=== PATIENT | female | born 1960 | race Caucasian/White ===

== ENCOUNTER → 2023-09-02 13:10 | Outpatient (REF) | payer OTHER, SELFPAY | LOC: RAD 13:10 | PROVIDERS: ATTENDING PHYSICIAN Surgery Vascular Surgery; FAMILY PHYSICIAN Family Medicine | DX: I73.9 Peripheral vascular disease, unspecified (principal) | CPT/HCPCS: 93922; 93925 ==

== ENCOUNTER 2023-12-13 08:07 | Inpatient (IN) | payer OTHER, SELFPAY ==
[2023-11-19 09:22] VITALS: BMI 26.7
[2023-11-19 09:54] LABS: % Basophils 0.4 % (0-2); % Eosinophils 1.8 % (0-6); % Immature Granulocytes 0.3 % (0-0.5); % Lymphocytes 29.1 % (20.5-51.1); % Monocytes 7.4 % (1.7-9.3); Absolute Eosinophils 0.1 10^3/uL (0-0.7); Absolute Monocytes 0.5 10^3/uL (0.1-0.6); Absolute Neutrophils 4.2 10^3/uL (1.4-6.5); Hematocrit 39.5 % (37.0-47.0); Hemoglobin 12.6 g/dL (12.0-16.0); Mean Corp Hgb Conc. 31.9 g/dL (33.0-37.0); Mean Corpuscular Hgb 28.9 pg (27.0-31.0); Mean Corpuscular Volume 90.6 fL (81.0-99.0); Mean Platelet Volume 8.8 fL (7.4-10.4); Nucleated Red Blood Cells % 0 %; Platelet Count 239 10^3/uL (130-400); Red Blood Cell Count 4.36 10^6/uL (4.20-5.40); Red Cell Dist. Width 13.9 % (11.5-14.5); White Blood Cell Count 6.9 10^3/uL (4.8-10.8)
[2023-11-19 09:57] LABS: INR 0.97; PT 12.7 Sec (11.4-14.6)
[2023-11-19 09:58] LABS: APTT 25.5 Sec (23.4-35.0)
[2023-11-19 10:21] LABS: Blood Urea Nitrogen 11 mg/dl (7-17); Calcium 9.4 mg/dl (8.4-10.2); Carbon Dioxide 26 mmol/L (22-30); Chloride 106 mmol/L (98-107); Estimated Creatinine Clearance 65 ml/min; Glucose 96 mg/dl (70-99); Potassium 4.2 mmol/L (3.5-5.1); Sodium 141 mmol/L (135-145); eGFR > 60.00
[2023-12-13] VITALS (20 sets, daily range): BP systolic 91–184; BP diastolic 50–79; BMI 26.1
[2023-12-13] MEDS: VANCOCIN 200 IV (08:43)
[2023-12-13] MEDS: BACTROBAN NASAL 1 GRAM NASAL (08:44)
[2023-12-13] MEDS: PERIDEX 0.12% ORAL RINSE 15 ML PO (08:44)
--- NOTE | 2023-12-13 09:15 | W.SUR.PREOP ---
Pre-Operative Surgical Note
-
I have examined this patient prior to the performance of the scheduled procedure.
The patient's condition is unchanged from the time of the current History and
Physical and the patient is able to undergo the scheduled procedure.
[2023-12-13 10:56] LABS: ACT-LR - POC 350 Seconds (116-155)
[2023-12-13 11:51] LABS: ACT-LR - POC 258 Seconds (116-155)
--- NOTE | 2023-12-13 12:22 | CON.INTV ---
Consultation
Consultation Request
Date/Time Consultation Requested: 12-13-23
Date/Time Consultation Performed: 12-13-23
Requesting Provider: Dr Chu
Performing Provider: Dr Harris
Reason for Consultation: s/p EVAR
Medical History
-
Chief Complaint: s/p EVAR
History of Present Illness:
Mrs Mckenna Carpenter is a 63/W adm 12-12 for planned vascular intervention for worsening SANDRA claudication, and postprandial abd pain with unintentional wt loss.
Received procedure by Dr Chu 12-12. Seen at ICU, c/o incisional pain
Past Medical History
Past Medical History: Other (see A&P for PMH/PSH)
Social History
Tobacco: Smoker
Alcohol: None
Drug: None
Personal:
Living: With Family
Family History
Family History: Cancer (M: breast. B: melanoma. B: colon)
Allergies / Home Medications
Allergies
Allergy/AdvReac Type Severity Reaction Status Date / Time
bee venom protein (honey bee) Allergy Anaphylaxis Verified 11/15/23 11:08
Penicillins Allergy Hives Verified 11/15/23 11:08
Home Medications
�Medication �Instructions �Recorded �Confirmed �Last Taken �Type
dexlansoprazole 60 mg 60 mg PO DAILY 06/23/23 11/15/23 Unknown History
capsule,biphase delayed release
(Dexilant)
mecobalamin (vitamin B12) 10,000 0 mcg IM QMONTH 06/23/23 11/15/23 Unknown History
mcg solution for injection
risankizumab-rzaa 360 mg/2.4 mL 360 mg SC DIRECTED 06/23/23 12/13/23 12/03/23 History
(150 mg/mL) subcut wearable
injector (Skyrizi)
acetaminophen 300 mg-codeine 30 mg 1 tab PO Q6H PRN pain 11/15/23 12/13/23 12/12/23 18:00 History
tablet
Review of Systems
-
History Source: Patient
Cardiac: Other (incisional pain)
Musculoskeletal: Other (back pain)
Vitals / Labs / Diagnostic Testing
Vital Signs
Temp Pulse Resp BP Pulse Ox
98.4 F 77 17 184/70 98
12/13/23 08:10 12/13/23 09:15 12/13/23 09:15 12/13/23 09:12 12/13/23 09:15
Diagnostic Testing:
Physical Exam
-
HEENT: Normocephalic and Moist Mucous Membranes
Cardiovascular: Regular Rhythm, Peripheral Edema (n) and JVD (n)
Respiratory: Clear and Non-Labored Respirations
GI: Soft, Non Distended and Non Tender
Neurology: Awake, AO x 3 and No Motor Deficits
Skin: Warm
General: Respiratory Distress (n)
Assessment
-
Assessment:
Mrs Mckenna Carpenter is a 63/W adm 12-12 for planned vascular intervention for worsening SANDRA claudication, and postprandial abd pain with unintentional wt loss.
Impression:
PAD, SANDRA claudication
S/p L Brachial Artery Cutdown, SMA stent Graft, Endovascular Repair of Distal Aorta and Bilateral Common Iliac Arteries, Intravascular Laser Lithotripsy, Angioplasty and Stent
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
Nephrolithiasis: urosepsis, L ureteral stone, obstructive uropathy, s/p cystoscopy with L ureteral stone dislodgment and left ureteral stent insertion 06-09-23
S/p cystoscopy, L ureteroscopy, laser lithotripsy of ureteral stone, L ureteral stent removal 06-30-23
HTN
PAD, bilateral SANDRA claudication
Endometriosis
UTIs
Goiter
Cataracts
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
Hemorrhoids
Crohn's disease
Hysterectomy
Smoker
Plan:
Postoperative surgical intensive care unit monitoring
Supplemental oxygen as needed
Incentive spirometry
Aspiration precautions
Neuro and vascular checks per protocol
Vascular surgery following-correspondence and operative notes reviewed
Postop pain mgmt
DVT prophylaxis
Early nutrition
Early mobilization
D/w INTERNATIONAL CONTROLLER
Critical care time: 35 min
--- NOTE | 2023-12-13 13:26 | W.IMMPOSTOP ---
Surgical Immed Post Op Note
-
Primary Surgeon: Dr. Selwyn Chu III, MD
Assisting Surgeon: Dr. Geraldo Hickey MD, PhD (PGY-1)
Pre-op Diagnosis: Peripheral arterial occlusive disease
Post-op Diagnosis: Peripheral arterial occlusive disease
Procedure Performed: Diagnostic arteriogram, left brachial artery cut down, SMA stent, intravascular lithotripsy of bilateral common iliac arteries, EVAR with AFX stent graft, balloon angioplasty
Anesthesia Type: General
Specimen / Cultures: None
Estimated Blood Loss: 50cc
Complications: None
Operative Findings: The patient was brought to the OR and placed in the supine position. After anesthesia induction and placement of a radial arterial line. The patient was prepped and draped in usual sterile fashion. The left upper extremity was
prepped and draped. Ultrasound guidance was used to identify the course and caliber of the brachial artery in the left upper extremity. Incision was made and sharp and electrocautery dissection was performed to expose the brachial artery just above
the antecubital fossa. Proximal and distal control was obtained with vessel loops. At this point we turned our attention to the groin, where the c arm was used to identify the superior and inferior borders of the femoral head bilaterally. Ultrasound
guidance was used to identify the common femoral arteries bilaterally. Micropuncture kits were used to access the common femoral arteries and this was upsized to 6-frisian sheaths over wire. Two preclose devices were placed in the right groin at 10'
and 2' o'clock positions. We then returned to the upper extremity where we used a micropuncture kit to access the brachial artery and upsized to a 5-frisian sheath. A cobra catheter was advanced over wire into the descending thoracic aorta.
Diagnostic arteriogram showed the take off of the SMA and FANG arteries as well as significant peripheral artery disease of the distal abdominal aorta and common iliacs bilaterally. Using a guidewire, we selected the SMA and advanced a catheter into
the take off the vessel from the aorta. A stent was placed across the proximal SMA. We then advanced a wire into the FANG. At this point, we turned our attention to the groins. We then advanced 0.018 wires into the groins bilaterally and performed
intravascular lithotripsy with balloon angioplasty of the common iliac arteries bilaterally. We then inserted the 17-frisian sheath for the AFX device. Using a snare wire in the left groin we were able to advance the sheath over the bifurcation of
the aorta. The AFX device was positioned such that the aortic segment laid inferior to the origin of the FANG. The AFX stent graft was deployed and balloon angioplasty was performed to profile the stent graft. The AFX sheath and wires were removed
and perclose devices were used to close the access sites (two on the right groin, one of the left groin). Skin glue was applied over the groin access sites. The upper extremity sheath was removed and the arteriotomy was closed with two interrupted
7-0 prolene sutures. Hemostasis was ensured with gel foam. The soft tissues and skin were closed with 3-0 and 4-0 suture layers and skin glue on the surface. At the conclusion of the case, the patient had excellent doppler signals in DPs and PTs
bilaterally as well as a strong palpable left radial artery pulse. The patient was transported to the PACU in stable condition.
[2023-12-13] MEDS: SUBLIMAZE 50 MCG IV (13:44)
[2023-12-13 13:48] LABS: Hematocrit 33.1 % (37.0-47.0); Hemoglobin 11.1 g/dL (12.0-16.0); Mean Corp Hgb Conc. 33.5 g/dL (33.0-37.0); Mean Corpuscular Hgb 29.3 pg (27.0-31.0); Mean Corpuscular Volume 87.3 fL (81.0-99.0); Mean Platelet Volume 8.7 fL (7.4-10.4); Platelet Count 170 10^3/uL (130-400); Red Blood Cell Count 3.79 10^6/uL (4.20-5.40); Red Cell Dist. Width 14.3 % (11.5-14.5)
[2023-12-13 13:51] LABS: INR 1.14; PT 14.4 Sec (11.4-14.6)
[2023-12-13 13:52] LABS: APTT 29.5 Sec (23.4-35.0)
[2023-12-13 14:03] LABS: ALT (SGPT) 12 U/L (0-35); AST (SGOT) 18 U/L (14-36); Alkaline Phosphatase 77 U/L (38-126); Blood Urea Nitrogen 9 mg/dl (7-17); Calcium 7.8 mg/dl (8.4-10.2); Carbon Dioxide 22 mmol/L (22-30); Chloride 115 mmol/L (98-107); Estimated Creatinine Clearance 86 ml/min; Glucose 137 mg/dl (70-99); Potassium 3.6 mmol/L (3.5-5.1); Sodium 142 mmol/L (135-145); Total Bilirubin 0.5 mg/dl (0.2-1.3); Total Protein 5.7 g/dl (6.3-8.2); eGFR > 60.00
[2023-12-13] MEDS: SUBLIMAZE 25 MCG IV ×2 (14:04→14:30)
[2023-12-13] MEDS: ASPIRIN 325 MG PO (14:06)
[2023-12-13] MEDS: PLAVIX 300 MG PO (14:07)
[2023-12-13] MEDS: CARDENE 200 IV (14:10)
[2023-12-13] MEDS: NSS 1000 IV (14:30)
[2023-12-13] MEDS: MORPHINE SULFATE 2 MG IV (14:57)
[2023-12-13] MEDS: LOW STRENGTH ASPIRIN PO (14:59)
[2023-12-13] MEDS: PROTONIX PO (14:59)
--- NOTE | 2023-12-13 15:00 | PTCARENOTE ---
PT received in bed from PACU, PT AAOX3 crying out in pain, unable to get comfortable due to movement restrictions, attempted repositioning, medicated as ordered, spoke with Tamela DE OLIVEIRA, obtained order for Codiene and Tylenol, as this is what
she takes at home, PT is upset with diet, explained Purpose of diet, PT states she ordering out, NSR on monitor, DP and PT pulses by Doppler, left brachial artery LASHONDA closed with surgiglue, ecchymosis noted, B/L groin puncture sites PLATFORM BEATER, soft closed
with surgiglue, right [place] zeroed and flushed, Chu draining clear yellow urine, Left forearm, right forearm#18, patent IV's, Cardene at 5 mcg/min to keep SBP less than 165, PT and oriented to room and policies and procedures
[2023-12-13] MEDS: HEPARIN 5000 UNITS SC ×2 (16:08→23:17)
[2023-12-13] MEDS: CODEINE 15 MG PO ×2 (16:09→23:15)
[2023-12-13] MEDS: TYLENOL 650 MG PO ×2 (16:09→23:15)
--- NOTE | 2023-12-13 17:37 | OR.RPT ---
Operative Report
Operative Report
Date of Operation: 12/13/2023
Pre Op Diagnosis:
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
2.) Calcified aortoiliac stenosis
Post Op Diagnosis:
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
2.) Calcified aortoiliac stenosis
Procedure:
1.) Balloon angioplasty and stent of superior mesenteric artery stenosis via left brachial artery approach (6 mm x 19 mm Van Etten VBX)
2.) Selective catheterization of the inferior mesenteric artery via left brachial artery approach
3.) Intravascular lithotripsy to BILATERAL common iliac artery stenoses (10 mm x 30 mm L6 shockwave balloon)
4.) Aortoiliac stent grafting using Endologix AFX device (98�00/13�40)
5.) Cutdown and exposure of left brachial artery for endovascular intervention
6.) Ultrasound-guided percutaneous access to the bilateral common femoral arteries
7.) ProGlide closure BILATERAL femoral artery access
Surgeon: Selwyn Chu III, MD
Vision Rehabilitation Therapist: Geraldo Hickey MD PhD, PGY1
Anesthesia: General
Complications: None
Fluoroscopy:
43.6 minutes
1883 mGy
DAP: 315.3
Estimated Blood Loss: 50 cc
History and Indications for Procedure: 63-year-old female with severe calcified aortoiliac occlusive disease, high-grade stenosis of her proximal superior mesenteric artery and high-grade stenosis of the proximal inferior mesenteric artery.
Procedure in Detail: Mckenna Carpenter was correctly identified and placed supine on the operating table. After adequate induction of anesthesia the left arm, abdomen, pelvis and bilateral groins were positioned, prepped and draped in the usual sterile
fashion. Preoperative antibiotics were administered. A timeout procedure was performed with the nursing and anesthesia staff confirming the patients identity as well as the nature and laterality of the procedure.
An incision was made over the brachial artery pulse just proximal to the left antecubital fossa. Electrocautery and sharp dissection were used to expose the brachial artery. Proximal and distal control was obtained with vessel loops. The artery
was soft and had a good quality pulse. Next, under ultrasound guidance, bilateral femoral artery sheath access was obtained. The arteries were patent. A pre-close technique was performed on the right femoral artery access with 2 offset Proglide
closure devices. The sutures were secured and tucked under surgical towels for use at the end of the case. A 7 Fr sheath was placed into the right femoral access. A 7 Fr sheath was placed into the left femoral access. The patient was systemically
heparinized. Wires from both sheaths were carefully advanced retrograde across the calcified common iliac artery stenoses and positioned in the distal abdominal aorta. A marker pigtail catheter was advanced into the abdominal aorta over the wire
from the right femoral access and connected to the power injector.
Under direct visualization the left brachial artery was punctured in a retrograde fashion using a micropuncture needle. A 5 Cypriot sheath was placed over Bentson wire. Using the Bentson wire and a Cobra catheter we navigated through the distal
arch and into the descending thoracic aorta. The wire and catheter were advanced into the abdominal aorta to the level of L1/L2. The wire was exchanged out for a Storq wire. A 6 Cypriot 90 cm sheath was advanced over the wire into the abdominal
aorta. A diagnostic aortogram was performed which clearly demonstrated the origin of the celiac artery, superior mesenteric artery and bilateral renal arteries. There was a focal calcified high-grade stenosis involving the origin of the superior
mesenteric artery. Under roadmap guidance using a Glidewire and Cobra catheter we selected the superior mesenteric artery. The wire was advanced distally. Through a Quickcross catheter the wire was exchanged out for a Storq wire. Under roadmap
guidance a 6 mm x 19 mm Van Etten VBX stent was positioned in the desired location across the superior mesenteric artery stenosis. The sheath was retracted to fully expose the stent. The stent was deployed in the desired location by inflating to
nominal pressure. The balloon was deflated and the sheath readvanced. Completion arteriogram demonstrated an excellent technical result with a widely patent superior mesenteric artery stent, brisk flow through the tunica-biloxi superior mesenteric artery
distally and no residual stenosis identified.
At this point we lost wire and sheath access to the superior mesenteric artery. We advanced the sheath and catheter further distally in the abdominal aorta. Another aortogram was performed through the pigtail catheter to clearly identify the
origin of the inferior mesenteric artery. Under roadmap guidance using a Glidewire and the Cobra catheter we selected the inferior mesenteric artery. The wire was advanced distally. The Glidewire was then exchanged out for a Storq wire through a
Quickcross catheter. The catheter was removed. The wire was left in place for marking purposes in an effort to preserve flow to the FANG during aortoiliac stent grafting.
We then focused our attention on vessel prep for the aortoiliac stent grafting. V18 wires were placed through the femoral access sheaths bilaterally into the abdominal aorta. Due to the heavily calcified nature of the aortic bifurcation and
bilateral common iliac artery disease and in an effort to modify the calcium to achieve maximum luminal gain with endovascular intervention I elected to proceed with intravascular lithotripsy. A 10 mm x 30 mm L6 Shockwave balloon was placed across
the left common iliac artery stenosis under roadmap guidance. Alternating rounds of lithotripsy pulse delivery at sub-nominal pressure and angioplasty at nominal pressure was performed across the left common iliac artery stenosis. In between rounds
of pulse delivery and angioplasty the balloon was deflated and repositioned under roadmap guidance. 150 pulses were delivered on the left. The balloon was then deflated and removed over the wire. The same L6 balloon was then readvanced over the
wire on the right and positioned under roadmap guidance across the right common iliac artery stenosis. Similarly, alternating rounds of lithotripsy pulse delivery at sub-nominal pressure and angioplasty at nominal pressure was performed across the
right common iliac artery stenosis. In between rounds of pulse delivery and angioplasty the balloon was deflated and repositioned under roadmap guidance. The remaining 150 pulses were delivered on the right. A total of 300 pulses were delivered.
Subsequent arteriogram demonstrated significantly improved result with patent common iliac arteries bilaterally. Focal areas of dissection were identified in the distal abdominal aorta and common iliac arteries. We then proceeded with the
aortoiliac stent grafting as planned.
The right V18 wire was exchanged out through a KMP catheter for a Lunderquist wire. The tip of the wire was positioned in the proximal descending thoracic aorta and marked on the table.
Over the Lunderquist wire in the right femoral access I placed the AFX introducer sheath and advanced the radio-opaque sheath tip to the abdominal aorta. This advanced easily. An En-Snare catheter was placed over the V18 wire from the left femoral
access and advanced to the distal abdominal aorta just above the aortic bifurcation. The En-Snare was then advanced through to the catheter tip.
The contralateral limb wire of the AFX2 main body was introduced through the introducer sheath and advanced to the aortic bifurcation. The 22-40/13-40 AFX2 bifurcated main body was then loaded onto the Lunderquist wire and advanced through the
introducer sheath. The wire was snared from the contralateral side and pulled out the left femoral access and the AFX2 main body was advanced until the limbs were above the aortic bifurcation. The entire system was then pulled down onto the aortic
bifurcation. I changed the orientation of the C arm and confirmed that the proximal fabric line of the main body was below the FANG marking wire. The main body was then deployed by pulling the control cord.
The contralateral limb was then deployed by pulling the yellow limb cover. Once this was completed I advanced a pigtail catheter over the contralateral limb wire until the tip was in contact with the wire lock. The contralateral limb was then pulled
as I advanced the pigtail up to release it from the wire lock. The wire was removed and the formed pigtail catheter was then advanced proximally. I inserted a Bentson wire through the pigtail catheter and removed the pigtail catheter over the wire.
The ipsilateral limb was deployed by pinning the inner core and retracting the AFX introducer sheath.
Bilateral 10 mm x 40 mm angioplasty balloons were introduced. These were used to profile the main body of the aortic stent graft as well as the bilateral iliac limbs.
A completion aortogram demonstrated an excellent technical result. The distal abdominal aorta and bilateral common iliac arteries were widely patent.. There was brisk flow through the stent and iliac limbs.The iliac bifurcations were preserved
bilaterally. The FANG was patent.
Satisfied with this result we then concluded the procedure. The wire and sheath were removed from the left brachial artery. There was brisk pulsatile flow. The artery was flushed with heparinized saline and the vessel loop secured. The
arteriotomy was repaired primarily with 2 interrupted 7-0 Prolene sutures. The vessel loops were released. There was a good pulse in the brachial artery proximal and distal to the repair. The patient had a palpable radial pulse at the wrist. The
Proglide sutures were secured bilaterally after removing the sheaths and wires. Protamine was administered. Additional pressure was applied to the puncture sites bilaterally. Hemostasis was achieved bilaterally. Skin glue was applied bilaterally.
The brachial artery exposure site was irrigated with saline solution. Hemostasis was achieved in the wound bed. The arteriotomy repair was hemostatic. The wound was closed in layers and sterile skin glue was applied.
The patient tolerated the procedure well and was taken to the PACU in stable condition.
Attestation: I was present and responsible for the entire procedure
Signed:
Selwyn Chu III, MD
[facility] Vascular Surgery
[phone] ([id number])
[2023-12-13] MEDS: NICODERM TRANSDERMAL 14 MG TRANSDERM (18:32)
--- NOTE | 2023-12-13 20:12 | PTCARENOTE ---
Rec'd care of patient at 1920. Patient alert and oriented. MAEx4. Vascular checks verified with previous RN. +Doppler pluses b/l dp and pt. B/l radial pulses palpable. Left arm and b/l groin incisions approximated, closed with surgical glue. Left
arm incision ecchymotic. Pain controlled at current time. NSR on tele monitor. +Murmur. Right radial saima zeroed and flushed. Correlating with BP cuff. Cardene gtt infusing per protocol. Lung sounds diminished throughout. Occasional dry cough.
Pulse ox 92% on RA. +BS. Chu in place for urine output. VSS. Call abraham within reach.
--- NOTE | 2023-12-13 21:42 | PTCARENOTE ---
Patient c/o right hand feels 'fake'. Denies numbness/tingling. Sensation normal. Skin warm to touch; pink; cap refill <2s. Moving extremity. Patient states she thinks it is stiff from not moving. Encouraged to try and move hand. Patient states she
is unable because arterial line causes discomfort with movement. BUILDINGS AND GROUNDS SUPERVISOR Shun Chaudhari aware. VSS. Cardene gtt turned off at 2130. Clarified IVF order with Dr. Chu. NS @ 80 mL/hr to continue overnight.
[2023-12-14] VITALS (9 sets, daily range): BP systolic 111–146; BP diastolic 48–87; BMI 25.8
[2023-12-14] MEDS: NSS 1000 IV (02:43)
--- NOTE | 2023-12-14 02:56 | PTCARENOTE ---
Assessment unchanged. Patient only complaint is discomfort from bed. Air cushion placed under buttocks. VSS. Cardene remains off. AM labs sent.
[2023-12-14 03:30] LABS: Hematocrit 28.5 % (37.0-47.0); Hemoglobin 9.8 g/dL (12.0-16.0); Mean Corp Hgb Conc. 34.4 g/dL (33.0-37.0); Mean Corpuscular Hgb 29.4 pg (27.0-31.0); Mean Corpuscular Volume 85.6 fL (81.0-99.0); Mean Platelet Volume 9.1 fL (7.4-10.4); Platelet Count 194 10^3/uL (130-400); Red Blood Cell Count 3.33 10^6/uL (4.20-5.40); Red Cell Dist. Width 14.2 % (11.5-14.5); White Blood Cell Count 10.6 10^3/uL (4.8-10.8)
[2023-12-14 03:41] LABS: APTT 27.3 Sec (23.4-35.0)
[2023-12-14 03:52] LABS: Blood Urea Nitrogen 9 mg/dl (7-17); Calcium 8.3 mg/dl (8.4-10.2); Carbon Dioxide 20 mmol/L (22-30); Chloride 113 mmol/L (98-107); Estimated Creatinine Clearance 75 ml/min; Glucose 120 mg/dl (70-99); Potassium 3.3 mmol/L (3.5-5.1); Sodium 139 mmol/L (135-145); eGFR > 60.00
[2023-12-14] MEDS: KCL 270 MEQ IV (05:00)
--- NOTE | 2023-12-14 05:27 | PTCARENOTE ---
Potassium 3.3. 40meq KCl infusing.
[2023-12-14] MEDS: HEPARIN SC (07:24)
[2023-12-14] MEDS: PLAVIX 75 MG PO (07:31)
[2023-12-14] MEDS: LOW STRENGTH ASPIRIN 81 MG PO (07:31)
[2023-12-14] MEDS: PROTONIX 40 MG PO (07:31)
--- NOTE | 2023-12-14 07:47 | W.PN.INTV ---
Documented by User: Criselda Reeves, Resident, 12/14/23 08:29
Today's Communication / Plan
Recommendations
Continue incentive spirometry
Possible discharge today
Assessment
-
ASSESSMENT:Mrs Mckenna Carpenter is a 63/W adm 12-12 for planned vascular intervention for worsening SANDRA claudication, and postprandial abd pain with unintentional wt loss. Received procedure by Dr Chu 12-12.
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
S/p cystoscopy, L ureteroscopy, laser lithotripsy of ureteral stone, L ureteral stent removal 06-30-23
HTN
PAD, bilateral SANDRA claudication
Endometriosis
UTIs
Goiter
Cataracts
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
Hemorrhoids
Crohn's disease
Hysterectomy
Smoker
IMPRESSION:PAD, SANDRA claudication
S/p L Brachial Artery Cutdown, SMA stent Graft, Endovascular Repair of Distal Aorta and Bilateral Common Iliac Arteries, Intravascular Laser Lithotripsy, Angioplasty and Stent
PLAN:
Post OP Day #2
Postoperative surgical intensive care unit monitoring
Supplemental oxygen as needed
Incentive spirometry
Aspiration precautions
Possible discharge today
Neuro and vascular checks per protocol
Vascular surgery following-correspondence and operative notes reviewed
Continue postop pain mgmt
DVT prophylaxis- heparin
Early nutrition
Early mobilization
Subjective Dataa
Subjective Data
Date of Service:
Date of Service: December 14, 2023
Subjective:
Patient was examined at bedside. No acute concerns.
Review of Systems
General: Other (Negative unless stated otherwise)
Objective Data
Data Reviewed
Vital Signs / I&O / Oxygen:
Vital Signs
Temp Pulse Resp BP Pulse Ox
97.4 F 71 11 120/61 93
12/14/23 07:30 12/14/23 06:45 12/14/23 06:45 12/14/23 04:00 12/13/23 21:30
Intake and Output
12/13/23 12/14/23 12/15/23
06:59 06:59 06:59
Intake Total 1480.0 / 1480.0
Output Total 2375 / 2375
Balance -895.0 / -895.0
SaO2 93
Physical Exam
General: Comfortable
HEENT: Normocephalic
Cardiovascular: S1-S2 and Regular Rhythm
Respiratory: Clear
GI: Soft, Non Distended and Non Tender
Neurology: Awake, Alert and Oriented
Labs/Micro/Reports
Lab Data
12/14/23 02:52
12/14/23 02:52
Laboratory Results
12/13/23 12/14/23
13:30 02:52
PT 14.4 14.0
INR 1.14 1.10
APTT 29.5 27.3

Documented by User: Abel Harris MD 12/14/23 11:42
Assessment
-
ASSESSMENT:
Mrs Mckenna Carpenter is a 63/W adm 12-12 for planned vascular intervention for worsening SANDRA claudication, and postprandial abd pain with unintentional wt loss. Received procedure by Dr Chu 12-12.
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
Nephrolithiasis: urosepsis, L ureteral stone, obstructive uropathy, s/p cystoscopy with L ureteral stone dislodgment and left ureteral stent insertion 06-09-23
S/p cystoscopy, L ureteroscopy, laser lithotripsy of ureteral stone, L ureteral stent removal 06-30-23
HTN
PAD, bilateral SANDRA claudication
Endometriosis
UTIs
Goiter
Cataracts
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
Hemorrhoids
Crohn's disease
Hysterectomy
Smoker
IMPRESSION:
PAD, SANDRA claudication
S/p L Brachial Artery Cutdown, SMA stent Graft, Endovascular Repair of Distal Aorta and Bilateral Common Iliac Arteries, Intravascular Laser Lithotripsy, Angioplasty and Stent
PLAN:
Post OP Day #2
Postoperative surgical intensive care unit monitoring
Supplemental oxygen as needed
Incentive spirometry
Aspiration precautions
Possible discharge today
Neuro and vascular checks per protocol
Vascular surgery following-correspondence and operative notes reviewed
Continue postop pain mgmt
DVT prophylaxis- heparin
Early nutrition
Early mobilization
Pulm lay stable for further disposition
Potential d/c today by Vasc Sx
Subjective Dataa
Subjective Data
Chief Complaint: Striper Spray Gun Follow Up
Objective Data
Physical Exam
HEENT: Moist Mucous Membranes
Cardiovascular: Murmur (n) and Peripheral Edema (n)
Respiratory: Non-Labored Respirations and Stridor (n)
Neurology: AO x 3 and No Motor Deficits
Skin: Warm
--- NOTE | 2023-12-14 08:00 | PTCARENOTE ---
Pt received awake and alert, SADAF singh. R rad saima intact, + cuff shabana. Bilat groin incisions and L brachial surg sites intact with surgical glue. L brachial inc with some ecchymosis noted. Pt SR as per monitor. O2 sat= 93% on R/A. +BSs. Chu cath
intact draining mod amt yellow urine. Dr Chu in to see pt. and assessed. Pt c/o of potassium drip. Potassium IV d/c'd and changed to oral doses. All pulses intact, Rad bilat palp, and DP and PT pulses present with doppler. Dr Chu with check on
pt again this afternoon, and possible discharge if circulation remains intact and pt stable.
--- NOTE | 2023-12-14 08:08 | W.PN.VS ---
Addendum entered and electronically signed by Selwyn Chu III, MD 12/14/23 10:43:
This patient was seen and examined with ALVINO Plasencia and ALVINO Shabazz. I agree with the history and physical exam as well as the assessment and plan. I have the following additions:
Looks great this morning
No complaints
Palpable DP pulses bilaterally
Groin puncture site soft bilaterally
Left brachial incision clean and dry, soft
Dual antiplatelet therapy
Out of bed
Remove A-line and Chu
Possible discharge later today
Signed:
Selwyn Chu III, MD
[facility]
[phone] (cell)
Addendum entered and electronically signed by ALVINO Shabazz 12/14/23 08:21:
We will also replace potassium, patient requesting repletion via p.o., will discontinue IV and add p.o. potassium
Original Note:
Today's Communication / Plan
-
Patient seen and examined at bedside with Dr. Selwyn Chu, below plan reviewed with attending
Assessment/Plan
-
Assessment: 63-year-old female POD #1 Balloon angioplasty and stent of superior mesenteric artery stenosis via left brachial artery approach (6 mm x 19 mm [place] VBX), Selective catheterization of the inferior mesenteric artery via left brachial
artery approach, Intravascular lithotripsy to BILATERAL common iliac artery stenoses (10 mm x 30 mm L6 shockwave balloon), Aortoiliac stent grafting using Endologix AFX device (52�41/76�09)
Plan:
Advance diet to low-cholesterol
Continue statin therapy
Continue dual antiplatelet therapy of Plavix 75 mg p.o. daily and aspirin 81 mg p.o. daily
Can get out of bed to chair with progression to ambulation as tolerated
Discontinue arterial line
Discontinue Chu catheter
Discontinue IV fluid
Subjective Data
-
Date of Service: December 14, 2023
Patient seen and examined at bedside offers no complaints, requesting to get out of bed and progress diet. Denies nausea, vomiting, fever, and chills.
Objective Data
-
Vital Signs
Temp Pulse Resp BP Pulse Ox
97.4 F 71 11 120/61 93
12/14/23 07:30 12/14/23 06:45 12/14/23 06:45 12/14/23 04:00 12/13/23 21:30
Intake and Output
12/13/23 12/14/23 12/15/23
06:59 06:59 06:59
Intake Total 1480.0 / 1560.0 160 / 160
Output Total 2375 / 2375
Balance -895.0 / -815.0 160 / 160
Intake:
IV fluids (Total) 1210.0 / 1290.0 160 / 160
Cardene 50.0 / 50.0
Nss 1,000 ml @ 80 mls/hr IV . 960 / 1040 160 / 160
[id number] [facility] Rx#:[id number]
normosol 200 / 200
IV piggybacks 270 / 270
Output:
Urine, Chu 2375 / 2375
Lab Results
12/14/23 02:52
12/14/23 02:52
Calcium 8.3 mg/dl (8.4-10.2) L 12/14/23 02:52
Total Bilirubin 0.5 mg/dl (0.2-1.3) 12/13/23 13:30
AST 18 U/L (14-36) 12/13/23 13:30
ALT 12 U/L (0-35) 12/13/23 13:30
Alkaline Phosphatase 77 U/L (38-126) 12/13/23 13:30
Total Protein 5.7 g/dl (6.3-8.2) L 12/13/23 13:30
Albumin 3.0 g/dl (3.5-5.0) L 12/13/23 13:30
Physical Exam
-
AAOx3, no apparent distress
No tachycardia
No dyspnea on room air
Abdomen soft, nontender
Left upper extremity puncture site CDI, no evidence of hematoma
Bilateral groin puncture sites CDI, no evidence of hematoma, all surrounding compartments soft
Left DP pulse +1 palpable, right DP by Doppler signal, bilateral feet warm
[2023-12-14] MEDS: KCL 40 MEQ PO (09:01)
--- NOTE | 2023-12-14 09:36 | PTCARENOTE ---
Chu cath d/c'd. R rad saima d/c'd. All pulses remain intact. Oral K+ given as ordered. Pt cleared for ambulation. Pt assisted to bathroom, pt had loose BM, which she says is always loose since her colon ca dx and surg. Pt also voided yellow urine
without difficulty. Pt was able to wash with CHG wipes, and brush teeth. Pt now to sitting in chair, tolerating well. Pt changed to contact precautions for past hx of ESBL in BC and urine. Pt tolerating breakfast well. Pt's to room and
updated. Dr Avila also to room during morning rounds. Call abraham at pt's side within reach.
[2023-12-14] MEDS: NICODERM TRANSDERMAL 14 MG TRANSDERM (11:57)
--- NOTE | 2023-12-14 14:25 | CM ---
Chart reviewed patient resides with spouse is independent with adl's and ambulation, plan is to home today no needs, patient has a prescription plan and uses [facility] pharmacy.
PCP: Dr. Gilmore
Plan; Home no needs when stable.
--- NOTE | 2023-12-14 14:26 | W.DS.TRANS ---
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
-
Discharge Instructions:
Discharge Diagnosis/Procedures Balloon angioplasty and stent of superior
mesenteric artery stenosis via left brachial
artery approach, Intravascular lithotripsy to
BILATERAL common iliac artery stenoses, and
Aortoiliac stent grafting using Endologix AFX
device
Diet As tolerated,Low Cholesterol
Activity No strenuous activity
Driving Restrictions No driving for 1 week
Bathing Restrictions OK to Shower
Others Tests Please obtain liver function testing in 2 months
now that you have started atorvastatin, please
follow-up with your PCP to continue this
medication
Instructions:
Stand-Alone Forms: DC Instr - Vascular OR
Changes to Home Medications: Yes
Discharge Medications:
DC Medications w/original date entered in [employer]
mecobalamin (vitamin B12) 10,000 mcg solution for injection 0 mcg IM QMONTH 06/23/23
risankizumab-rzaa 360 mg/2.4 mL (150 mg/mL) subcut wearable injector (Skyrizi) 360 mg SC DIRECTED 06/23/23
acetaminophen 300 mg-codeine 30 mg tablet 1 tab PO Q6H PRN pain 11/15/23
aspirin 81 mg chewable tablet 81 mg PO DAILY #90 tabs 12/14/23
atorvastatin 10 mg tablet 10 mg PO QPM #90 tabs 12/14/23
clopidogrel 75 mg tablet 75 mg PO DAILY #90 tabs 12/14/23
Home Medication Changes
Started:
aspirin 81 mg chewable tablet 81 mg PO DAILY #90 tabs 12/14/23
atorvastatin 10 mg tablet 10 mg PO QPM #90 tabs 12/14/23
clopidogrel 75 mg tablet 75 mg PO DAILY #90 tabs 12/14/[address] Eugene Gilmore' office of newly started atorvastatin and request for their office to comanage medication, will ask for follow up blood test results to be sent to their office as well.
Pending Results: No
--- NOTE | 2023-12-14 14:49 | PTCARENOTE ---
Pt walked entire unit floor with this nurse and rn cardiac, VSS. Surg inc of L brachial and R an L groins remain intact. Pt seen by Gill Knox NP, and cleared for discharge.
--- NOTE | 2023-12-14 15:05 | PN.CDI ---
CDI
- -
CDI:
Physician Documentation Request
Admit Date: 12/13/23 08:07
Dear Graham DE OLIVEIRA,
Clinical Indicators:
Patient admitted with SMA and aortoiliac stenosis.
KCl:
12/14/23
02:52
Potassium 3.3 L
Potassium chloride 40 meq given.
Based on the above, could you clarify in the progress notes, the appropriate diagnosis, if significant, that supports the above abnormalities and additional evaluation, monitoring and/or treatment rendered:
Hypokalemia
Abnormal lab value, clinically insignificant
Other, please specify
Use of terms such as suspected, likely, concern for, or probable (associated with a specific diagnosis that is being evaluated, monitored, or treated as if it exists) are acceptable and can be coded in the inpatient setting, when documented at the
time of discharge.
Thank you,
Kayleen Ruiz RN
CDI Specialist
available via tiger text
Please use your independent medical judgment in providing your response.
--- NOTE | 2023-12-14 15:35 | PTCARENOTE ---
recd pt, discharge instructions reviewed, anxious to go home. clarification about tylenol with codeine per vascular staff, pt may continue taking. IVs removed, off monitor, dressed, taken by wheelchair to personal vehicle and family member. skin
warm and dry. no distress.
--- NOTE | 2023-12-16 08:12 | W.PN.UPDATE ---
Update Note
Progress Note Update
In response to CDI:
Clinical Indicators:
Patient admitted with SMA and aortoiliac stenosis.
KCl:
12/14/23
02:52
Potassium 3.3 L
Potassium chloride 40 meq given.
Based on the above, could you clarify in the progress notes, the appropriate diagnosis, if significant, that supports the above abnormalities and additional evaluation, monitoring and/or treatment rendered:
Hypokalemia, clinically insignificant- patient with evidence of chronic hypokalemia as evidence by past blood work, treated with supplemental PO potassium. Patient also indicated that she takes over the counter potassium supplementation regularly
but forgot to inform care team when providing home medication reconciliation.
== END 2023-12-14 15:57 | disposition home or self-care (01) | DRG 269 ==
LOC: ICU 08:07
PROVIDERS: Nurse Practitioner Acute Care; ADMITTING PHYSICIAN Surgery Vascular Surgery; CONSULT PHYSICIAN Internal Medicine Pulmonary Disease; FAMILY PHYSICIAN Family Medicine
PROC: 04FC3ZZ Fragmentation of Right Common Iliac Artery, Percutaneous Approach (ICD-10-PCS; 2023-12-13)
PROC: 04V03DZ Restriction of Abdominal Aorta with Intraluminal Device, Percutaneous Approach (ICD-10-PCS; 2023-12-13)
PROC: 04FD3ZZ Fragmentation of Left Common Iliac Artery, Percutaneous Approach (ICD-10-PCS; 2023-12-13)
PROC: 04753DZ Dilation of Superior Mesenteric Artery with Intraluminal Device, Percutaneous Approach (ICD-10-PCS; 2023-12-13)
DX: I70.0 Atherosclerosis of aorta (principal); K50.90 Crohn's disease, unspecified, without complications; K55.1 Chronic vascular disorders of intestine; I70.213 Atherosclerosis of native arteries of extremities with intermittent claudication, bilateral legs; K21.9 Gastro-esophageal reflux disease without esophagitis; I10 Essential (primary) hypertension; R63.4 Abnormal weight loss; Z68.25 Body mass index [BMI] 25.0-25.9, adult; Z79.891 Long term (current) use of opiate analgesic; Z79.899 Other long term (current) drug therapy; Z87.442 Personal history of urinary calculi; Z87.891 Personal history of nicotine dependence
CPT/HCPCS: 36245; 36415; 37236; 71045; 71046; 76937; 80048; 80053; 85025; 85027; 85610; 85730; 86850; 86900; 86901; 87070; 93005; C1725; C1760; C1769; C1894; C9765; Q9967

== ENCOUNTER 2023-12-31 15:43 | Emergency (ER) | payer OTHER, SELFPAY ==
[2023-12-31 15:47] VITALS: BP 174/95
--- NOTE | 2023-12-31 16:13 | ED.GENMED ---
History of Present Illness
General
Chief Complaint: Abdominal Pain
Time Seen by Provider: 12/31/23 16:13
History of Present Illness
History of Present Illness:
HPI: Patient presents with 5 days of abdominal pain. She had balloon angioplasty and stent of SMA stenosis on 12/13/2023 she also had intravascular lithotripsy to the bilateral common iliacs and aortoiliac stent grafting. She did not have any
immediate postoperative complications. She has had poor p.o. intake over the last 5 days and has had vomiting. She spoke to Dr. Chu who wanted patient to come in here for further evaluation. She states that she has intermittently had some left
upper extremity coldness but not currently. This does not feel like her Crohn's disease.
EXAM:
GENERAL: Well appearing but in mild to moderate distress
HEENT: Moist oral mucosa
CARDIOVASCULAR: No murmurs, normal heart rate, regular rhythm, No chest wall tenderness, there is strong DP and radial pulses bilaterally with no evidence of poor perfusion
PULMONARY: No respiratory distress, breath sounds are clear and equal
ABDOMEN: Soft with no peritoneal signs, moderate diffuse tenderness
NEUROLOGIC: Excellent strength all extremities, no coordination deficits
PSYCHIATRIC: Appropriate mental status, normal insight and judgement
EXTREMITIES: Nontender, no edema, moves all extremities equally
SKIN: No rash, no lesions
TIME OF INITIAL ENCOUNTER: 4:15 PM
NUMBER AND COMPLEXITY OF PROBLEMS ADDRESSED AT THE ENCOUNTER
� Chronic conditions affecting care: History of colon cancer, Crohn's, GERD
� Acute Exacerbation and/or Progression of Chronic Illness: This is an acute problem
� Differential Diagnosis includes: Surgical complication, bowel obstruction, gastroenteritis, Crohn's exacerbation.
AMOUNT AND/OR COMPLEXITY OF DATA TO BE REVIEWED AND ANALYZED
� I performed an independent evaluation of and my interpretation is:
EKG: Sinus 77, nonspecific ST abnormality somewhat more prominent now in comparison to last month's EKG
CT: CT shows evidence of enteritis of the distal small bowel proximal to the ileocolonic anastomosis with patency of the vascular stents
X-rays:
Laboratory Studies: CBC normal, GFR 56, troponin less than 0.012, lipase and LFTs unremarkable
Other:
� Review of other/old records: I reviewed the recent records including the discharge summary from last month
� Clinical information was obtained by an independent historian:
� Prescriptions/Medications Considered but not given:
� Further testing considered but not performed:
RISK OF COMPLICATIONS AND/OR MORBIDITY OR MORTALITY OF PATIENT MANAGEMENT
� Social determinants of health affecting care: Lives at home
� Discussion with other providers: The patient was seen by vascular in the ED
� Escalation of care including admission/observation vs risk of discharge considered: The patient was given Dilaudid and Zofran as well as fluids. CT imaging was obtained which suggest some degree of enteritis. On reassessment
at 6:40 PM, the patient still has some discomfort intermittently. However she still feels comfortable enough to go home. Will give short course of additional narcotic analgesia that she has been on codeine but this has not helped. She think she
has been on tramadol in the past. She does not want anything stronger than tramadol. However she also wants the pain to go away. She thinks that her symptoms are related to eating 'a bad egg' several days ago. Although CT suggest some
abnormality in the left kidney, the patient has no back pain, no CVA tenderness, no urinary symptoms. Doubt that she truly has renal infarct. On reassessment at 6:50 PM, she felt that she would benefit from additional low-dose pain medication
before she goes home but is still here to go home�indicating that she would not be able to get to the pharmacy tonight.
Past History
Past History
ED Past Medical History: GERD and Other (Neck and back pain, DDD, Crohns, Hemorrhoids, Renal calculus, Hernia, UTI, Goiter)
ED Past Surgical History: Bowel resection, Cholecystectomy, Gynecological (Hysterectomy) and Other (Cataracts)
Social History
Tobacco: Smoker
Alcohol: None
Personal:
Living: with family
Phy Exam
Physical Exam
Physical Exam:
See HPI
Course
Orders/Labs/Results
Orders:
Orders
12/31/23 16:26
0.9% Sodium Chloride 1000 ml [Nss] 1,000 ml IV BOLUS
HYDROmorphone [Dilaudid] 0.5 mg IV NOW STA
Ondansetron Injectable [Zofran] 4 mg IV NOW STA
12/31/23 16:34
BMP [Basic Metabolic Panel] Stat
CBC/No Diff [Complete Blood Count/No Diff] Stat
LFT [Rmcgy-Loyl-Ynvjchc] Urgent
Lipase Urgent
12/31/23 16:38
Troponin I Q6H
12/31/23 16:51
EKG [Electrocardiogram (*1)] Urgent
Reason for Study: Abdominal Pain
EKG- Treatment ONCE
12/31/23 16:56
CT Chest/abd/pelvis Angio W/wo Stat
Comment:
Reason For Exam: abd pain s/p SMA stent
12/31/23 18:52
HYDROmorphone [Dilaudid] 0.5 mg IV NOW STA
12/31/23 22:45
Troponin I Q6H
Abnormal Lab Results
12/31/23
16:34
Carbon Dioxide 20 L mmol/L
(22-30)
Creatinine 1.1 H mg/dL
(0.6-1.0)
Glucose 112 H mg/dl
(70-99)
12/31/23 16:34
12/31/23 16:34
Vital Signs
Initial and Last Documented VS:
Initial Vital Signs
Temp Pulse Resp BP Pulse Ox
98.7 F 95 20 174/95 97
12/31/23 15:47 12/31/23 15:47 12/31/23 15:47 12/31/23 15:47 12/31/23 15:47
Last Documented Vital Signs
Temp Pulse Resp BP Pulse Ox
98.2 F 77 18 148/98 100
12/31/23 18:22 12/31/23 18:22 12/31/23 18:22 12/31/23 18:22 12/31/23 18:22
*Critical Care Note
Total Time (30-74mins, 75-104mins- exclusive of procedures): Not Applicable
ED Attending Note
-
Portions of this chart may have been created with voice recognition software.� Occasional wrong word or��sound alike� substitutions may have occurred due to the inherent limitations of voice recognition software.
Discharge Plan
Departure
Patient Disposition: Home (Routine Discharge)
Date of Disposition: 12/31/23
Time of Disposition: 18:45
Patient with high blood pressure during this ER visit?: Yes
Discharge Problem:
Enteritis
Instructions: Diarrhea, Adult ED, Nausea and Vomiting, Adult ED
Prescriptions:
New
tramadol 50 mg tablet
50 mg PO Q8H PRN (Reason: Pain) Qty: 16 0RF
ondansetron 4 mg tablet,disintegrating
4 mg PO Q8H PRN (Reason: nausea and vomiting) Qty: 14 0RF
dicyclomine 20 mg tablet
20 mg PO BID PRN (Reason: pain) Qty: 14 0RF
No Action
Skyrizi 360 mg/2.4 mL (150 mg/mL) Wearable Injector
360 mg SC DIRECTED
Rx Instructions:
Q 8 weeks
Next dose due : 12/02/2023
mecobalamin (vitamin B12) 10,000 mcg Recon Soln
0 mcg IM QMONTH
Patient Comments:
Per patient she last took this med '2 or 3 months ago'
Rx Instructions:
Last dose: 09/08/2023
Next dose due: 11/2023
acetaminophen-codeine 300-30 mg Tablet
1 tab PO Q6H PRN (Reason: pain)
atorvastatin 10 mg Tablet
10 mg PO QPM Qty: 90 0RF
clopidogrel 75 mg Tablet
75 mg PO DAILY Qty: 90 0RF
aspirin 81 mg Tablet,Chewable
81 mg PO DAILY Qty: 90 0RF
Referrals:
Eugene Gilmore, [Family Provider] -
Activity Restrictions/Additional Instructions:
Follow-up your primary care doctor. Return here if worse.
Interventions
Interventions:
*Risk Screen - Suicide Last Done: 12/31/23 15:47
*General Assessment Last Done: 12/31/23 15:47
*Neglect/Abuse Screening Last Done: 12/31/23 15:47
ED- Fall Risk Assessment Last Done: 12/31/23 17:02
ZS-Mfhimb-Tvjopkjjvv Assessment Last Done: 12/31/23 16:40
Discharge Date and Time
Print Language: SINHALA
--- NOTE | 2023-12-31 16:23 | W.PN.UPDATE ---
Update Note
Progress Note Update
Vascular consultation:
Pt was seen in our office on 12/27/2023 as noted below.
At that time patient was having continued postprandial pain, stopped her Plavix on her own for heartburn. She was started on Effient at her office visit.
Today patient presents to the ER for 4 days of constant right and left upper quadrant abdominal pain, intermittent heartburn, no p.o. intake, nausea and vomiting. Patient admits she has not taken any of her medications for the last 4 days due to
not being able to hold them down. Patient does have a history of Crohn's disease though she states the pain she is currently having feels nothing like her usual abdominal discomfort. Patient admits she has had diarrhea off and on for the last 4
days, this is unusual for her. Patient denies heartburn at this time.
Patient seen at bedside in the ER with her present. Patient is writhing on the bed, rubbing her abdomen. She states her abdominal pain starts on the right moves to the left with ' gurgling sounds'. The pain is constant. Denies lower
abdominal pain, chest pain, back pain, shoulder pain, shortness of breath. Upper abdomen is slightly tender to palpation, soft all over.
Plan:
-CBC, BMP, troponins
-EKG
-CTA abdomen/pelvis is pending
-d/w Dr Win
[2023-12-31] MEDS: NSS 1000 IV (16:32)
[2023-12-31] MEDS: DILAUDID 0.5 MG IV ×2 (16:35→19:00)
[2023-12-31] MEDS: ZOFRAN 4 MG IV (16:35)
[2023-12-31 16:43] LABS: Hematocrit 38.4 % (37.0-47.0); Hemoglobin 12.9 g/dL (12.0-16.0); Mean Corp Hgb Conc. 33.6 g/dL (33.0-37.0); Mean Corpuscular Hgb 28.7 pg (27.0-31.0); Mean Corpuscular Volume 85.3 fL (81.0-99.0); Mean Platelet Volume 8.4 fL (7.4-10.4); Platelet Count 392 10^3/uL (130-400); Red Cell Dist. Width 13.9 % (11.5-14.5); White Blood Cell Count 9.4 10^3/uL (4.8-10.8)
[2023-12-31 16:57] LABS: ALT (SGPT) 14 U/L (0-35); AST (SGOT) 21 U/L (14-36); Albumin 4.5 g/dl (3.5-5.0); Alkaline Phosphatase 104 U/L (38-126); Blood Urea Nitrogen 11 mg/dl (7-17); Calcium 9.9 mg/dl (8.4-10.2); Carbon Dioxide 20 mmol/L (22-30); Chloride 107 mmol/L (98-107); Direct Bilirubin 0.4 mg/dl (0.0-0.4); Glucose 112 mg/dl (70-99); Lipase 35 U/L (23-300); Potassium 3.6 mmol/L (3.5-5.1); Sodium 138 mmol/L (135-145); Total Bilirubin 1.1 mg/dl (0.2-1.3); Total Protein 7.5 g/dl (6.3-8.2); eGFR 56.46
[2023-12-31 17:07] LABS: Troponin I < 0.012 ng/ml
[2023-12-31 18:21] VITALS: BP 149/68
[2023-12-31 18:22] VITALS: BP 148/98
[2023-12-31 18:23] VITALS: BMI 25.7
== END 2023-12-31 19:24 | disposition home or self-care (01) ==
LOC: EMR 15:43
PROVIDERS: EMERGENCY PHYSICIAN Emergency Medicine; FAMILY PHYSICIAN Family Medicine; OTHER PHYSICIAN Nurse Practitioner Acute Care
DX: K52.9 Noninfective gastroenteritis and colitis, unspecified (principal); F17.200 Nicotine dependence, unspecified, uncomplicated; R03.0 Elevated blood-pressure reading, without diagnosis of hypertension
CPT/HCPCS: 99285; 96374; 96375; 96361; 96376; 71275; 74174; 80048; 80076; 83690; 84484; 85027; 93005; Q9967

== ENCOUNTER → 2024-05-19 11:07 | Outpatient (REF) | payer OTHER, SELFPAY | LOC: HWRAD 11:07 | PROVIDERS: ATTENDING PHYSICIAN Urology; FAMILY PHYSICIAN Family Medicine | DX: N20.0 Calculus of kidney (principal) | CPT/HCPCS: 74018 ==

== ENCOUNTER → 2024-06-20 08:42 | Outpatient (REF) | payer OTHER, SELFPAY | LOC: DHVS 08:42 | PROVIDERS: ATTENDING PHYSICIAN Surgery Vascular Surgery; FAMILY PHYSICIAN Family Medicine | DX: I73.9 Peripheral vascular disease, unspecified (principal); K55.1 Chronic vascular disorders of intestine | CPT/HCPCS: 93922; 93975; 93978 ==

== ENCOUNTER 2024-10-11 20:10 | Emergency (ER) | payer OTHER, SELFPAY ==
[2024-10-11 20:13] VITALS: BP 136/95
[2024-10-11 20:39] LABS: % Basophils 0.3 % (0-2); % Eosinophils 1.7 % (0-6); % Immature Granulocytes 0.3 % (0-0.5); % Lymphocytes 25.3 % (20.5-51.1); % Monocytes 7.4 % (1.7-9.3); Absolute Eosinophils 0.1 10^3/uL (0-0.7); Absolute Lymphocytes 1.8 10^3/uL (1.2-3.4); Absolute Monocytes 0.5 10^3/uL (0.1-0.6); Absolute Neutrophils 4.6 10^3/uL (1.4-6.5); Hematocrit 38.8 % (37.0-47.0); Mean Corp Hgb Conc. 33.5 g/dL (33.0-37.0); Mean Corpuscular Volume 89.4 fL (81.0-99.0); Mean Platelet Volume 8.4 fL (7.4-10.4); Nucleated Red Blood Cells % 0 %; Platelet Count 275 10^3/uL (130-400); Red Blood Cell Count 4.34 10^6/uL (4.20-5.40); Red Cell Dist. Width 13.8 % (11.5-14.5); White Blood Cell Count 7.1 10^3/uL (4.8-10.8)
[2024-10-11 20:42] LABS: INR 0.91; PT 12.7 Sec (11.4-14.6)
[2024-10-11 20:43] LABS: APTT 26.4 Sec (23.4-35.0)
[2024-10-11 20:52] LABS: ALT (SGPT) 20 U/L (0-35); AST (SGOT) 21 U/L (14-36); Albumin 4.3 g/dl (3.5-5.0); Alkaline Phosphatase 110 U/L (38-126); Blood Urea Nitrogen 12 mg/dl (7-17); Calcium 9.4 mg/dl (8.4-10.2); Carbon Dioxide 27 mmol/L (22-30); Chloride 109 mmol/L (98-107); Glucose 122 mg/dl (70-99); Potassium 4.1 mmol/L (3.5-5.1); Sodium 144 mmol/L (135-145); Total Bilirubin 0.5 mg/dl (0.2-1.3); Total Protein 7.1 g/dl (6.3-8.2); eGFR > 60.00
== END 2024-10-11 20:34 | disposition left against medical advice (07) ==
LOC: EMR 20:10
PROVIDERS: EMERGENCY PHYSICIAN Emergency Medicine
DX: R04.2 Hemoptysis (principal); Z53.21 Procedure and treatment not carried out due to patient leaving prior to being seen by health care provider
CPT/HCPCS: 80053; 85025; 85610; 85730

== ENCOUNTER 2024-10-12 06:48 | Emergency (ER) | payer OTHER, SELFPAY ==
[2024-10-12 06:50] VITALS: BP 176/93
[2024-10-12 07:21] VITALS: BMI 27.6
--- NOTE | 2024-10-12 09:52 | ED.GENMED ---
History of Present Illness
General
Chief Complaint: Abdominal Symptoms
Source: patient
Time Seen by Provider: 10/12/24 07:11
History of Present Illness
History of Present Illness:
64-year-old female who presents after she has noticed over the last 3 days that at night when she lays down she feels something 'bubbling up' in the back of her throat. She states she normally just swallows it. But she decided yesterday morning to
spit it out and noticed there was blood. The patient admits that she did not have any bleeding or noticed any blood today at all. She states she continues to smoke and does not want to quit. She recently did have an SMA stent and vascular
procedures. The patient states that she has not vomited blood at all. She has had no melena or hematochezia. She presented last night but decided to leave because she did not want to wait. No chest pain. No shortness of breath. States she has
coughed up mucus otherwise during the day without any blood. Patient states only when she lays down feels pulling in the back of her throat. No abdominal pain. She is on Effient. She denies epistaxis
Past History
Past History
ED Past Medical History: GERD and Other (Neck and back pain, DDD, Crohns, Hemorrhoids, Renal calculus, Hernia, UTI, Goiter, peripheral vascular disease, mesenteric vascular disease)
ED Past Surgical History: Bowel resection, Cholecystectomy, Gynecological (Hysterectomy) and Other (Cataracts)
Social History
Tobacco: Smoker
Alcohol: None
Personal:
Living: with family
Phy Exam
Physical Exam
Physical Exam:
CONSTITUTIONAL Patient alert and oriented to person, place and time. Well-appearing. Vital signs reviewed.
HEAD atraumatic, normocephalic.
EYES eyelids normal to inspection, Extraocular muscles intact, Conjunctiva normal, Sclera normal.
ENT posterior pharynx appears okay. Uvula normal. No noted epistaxis
NECK normal range of motion, Trachea midline, no jugular venous distention.
RESPIRATORY CHEST No respiratory distress noted, Chest expansion equal, Bilateral breath sounds clear.
CARDIOVASCULAR regular rate and rhythm, Heart sounds normal.
ABDOMEN abdomen nontender, Bowel sounds normal. No distention.
BACK normal inspection, no obvious deformities
UPPER EXTREMITY range of motion normal, Motor strength normal, no cyanosis, no edema.
LOWER EXTREMITY range of motion normal, Motor strength normal, no cyanosis, no edema.
NEURO Speech normal, No focal motor deficits, Horatio coma scale 15, Memory normal, Cranial Nerves intact to screening exam.
SKIN skin warm, dry, and normal in color.
Course
Orders/Labs/Results
Orders:
Orders
10/12/24 07:38
CR Chest - 2 Views Urgent
Comment:
Reason For Exam: possible hemoptysis
Vital Signs
Initial and Last Documented VS:
Initial Vital Signs
Temp Pulse Resp BP Pulse Ox
97.8 F 82 22 176/93 100
10/12/24 06:50 10/12/24 06:50 10/12/24 06:50 10/12/24 06:50 10/12/24 06:50
Last Documented Vital Signs
Temp Pulse Resp BP Pulse Ox
97.8 F 82 22 176/93 100
10/12/24 06:50 10/12/24 06:50 10/12/24 06:50 10/12/24 06:50 10/12/24 06:50
MDM/Problems Addressed
Differential Diagnosis Includes:
Epistaxis, hemoptysis, lung mass, ENT tumor, upper GI bleed
MDM/Problems Addressed:
Hemoptysis
*Radiology
Radiology exam reviewed: all reviewed NAD by ED Provider
*Pulse Oximetry
Patient hypoxic: no
*Critical Care Note
Total Time (30-74mins, 75-104mins- exclusive of procedures): Not Applicable
Data Reviewed
Review of Other/Old Records Reveals: Labs (Labs reviewed from yesterday. Hemoglobin normal)
Source: patient
Further Testing Considered But Not Given:
Considered CT however patient left prior to completion of evaluation
Patient Management
Escalation/DeEscalation of care consider admission/obs:
Labs unremarkable from last night. Patient did not want new labs drawn. Hemoglobin was okay. Chest x-ray unremarkable. Question whether this could be ENT in nature. Extensive long conversation with the patient on importance of smoking
cessation. Patient however states that she does not have much intention on quitting at this point. After chest x-ray came to reassess and patient had left. I do think she could benefit from outpatient follow-up with ENT and pulmonology. She
denies daytime hemoptysis so question whether this could be postnasal drip with bleeding at night. Given her risks there are a good number of things that could cause this. She states there has been no further bleeding today. I did attempt to call
the patient's phone however there was no answer
ED Attending Note
-
Portions of this chart may have been created with voice recognition software.� Occasional wrong word or��sound alike� substitutions may have occurred due to the inherent limitations of voice recognition software.
Discharge Plan
Departure
Patient Disposition: Elopement
Discharge Problem:
Hemoptysis
Prescriptions:
No Action
Skyrizi 360 mg/2.4 mL (150 mg/mL) Wearable Injector
360 mg SC DIRECTED
Rx Instructions:
Q 8 weeks
Next dose due : 12/02/2023
mecobalamin (vitamin B12) 10,000 mcg Recon Soln
0 mcg IM QMONTH
Patient Comments:
Per patient she last took this med '2 or 3 months ago'
Rx Instructions:
Last dose: 09/08/2023
Next dose due: 11/2023
acetaminophen-codeine 300-30 mg Tablet
1 tab PO Q6H PRN (Reason: pain)
atorvastatin 10 mg Tablet
10 mg PO QPM Qty: 90 0RF
clopidogrel 75 mg Tablet
75 mg PO DAILY Qty: 90 0RF
aspirin 81 mg Tablet,Chewable
81 mg PO DAILY Qty: 90 0RF
tramadol 50 mg tablet
50 mg PO Q8H PRN (Reason: Pain) Qty: 16 0RF
ondansetron 4 mg tablet,disintegrating
4 mg PO Q8H PRN (Reason: nausea and vomiting) Qty: 14 0RF
dicyclomine 20 mg tablet
20 mg PO BID PRN (Reason: pain) Qty: 14 0RF
Referrals:
Eugene Gilmore DO [Family Provider] -
Interventions
Interventions:
*Risk Screen - Suicide Last Done: 10/12/24 06:50
*General Assessment Last Done: 10/12/24 07:21
*Neglect/Abuse Screening Last Done: 10/12/24 07:21
*ED- Fall Risk Assessment Last Done: 10/12/24 07:21
*ED COVID-19 Vaccine History Last Done: 10/12/24 07:21
DJ-Ijciqh-Tvntgsyhkw Assessment Last Done: 10/12/24 07:21
Discharge Date and Time
Discharge Date/Time: 10/12/24 09:44
Print Language: MACEDONIAN
== END 2024-10-12 09:44 | disposition left against medical advice (07) ==
LOC: EMR 06:48
PROVIDERS: EMERGENCY PHYSICIAN Emergency Medicine; FAMILY PHYSICIAN Family Medicine
DX: R04.2 Hemoptysis (principal); F17.200 Nicotine dependence, unspecified, uncomplicated; K21.9 Gastro-esophageal reflux disease without esophagitis; I73.9 Peripheral vascular disease, unspecified; Z90.49 Acquired absence of other specified parts of digestive tract; Z90.710 Acquired absence of both cervix and uterus; Z87.19 Personal history of other diseases of the digestive system
CPT/HCPCS: 99283; 71046

== ENCOUNTER → 2025-01-10 08:07 | Outpatient (REF) | payer OTHER, SELFPAY | LOC: RAD 08:07 | PROVIDERS: ATTENDING PHYSICIAN Surgery Vascular Surgery; FAMILY PHYSICIAN Family Medicine; REFERRING PHYSICIAN Urology | DX: N20.0 Calculus of kidney (principal); I77.9 Disorder of arteries and arterioles, unspecified; K55.1 Chronic vascular disorders of intestine | CPT/HCPCS: 74018; 93922; 93975; 93978 ==

== ENCOUNTER → 2025-02-23 08:33 | Outpatient (REF) | payer OTHER, SELFPAY | LOC: RAD 08:33 | PROVIDERS: ATTENDING PHYSICIAN Internal Medicine Cardiovascular Disease; FAMILY PHYSICIAN Family Medicine | DX: I73.9 Peripheral vascular disease, unspecified (principal); R07.89 Other chest pain | CPT/HCPCS: 93017; 93350; 93880; Q9957 ==

== ENCOUNTER → 2025-03-02 10:24 | Outpatient (REF) | payer OTHER, SELFPAY | LOC: RAD 10:24 | PROVIDERS: ATTENDING PHYSICIAN Internal Medicine Cardiovascular Disease; FAMILY PHYSICIAN Family Medicine | DX: I25.118 Atherosclerotic heart disease of native coronary artery with other forms of angina pectoris (principal) | CPT/HCPCS: 75574; Q9967 ==

== ENCOUNTER 2025-06-08 06:17 | Day surgery (SDC) | payer OTHER, SELFPAY ==
[2025-05-29 10:19] VITALS: BMI 28.5
[2025-05-29 11:01] LABS: Hematocrit 40.5 % (37.0-47.0); Hemoglobin 12.9 g/dL (12.0-16.0); Mean Corp Hgb Conc. 31.9 g/dL (33.0-37.0); Mean Corpuscular Volume 92.3 fL (81.0-99.0); Nucleated Red Blood Cells % 0 %; Platelet Count 269 10^3/uL (130-400); Red Cell Dist. Width 13.8 % (11.5-14.5)
[2025-05-29 11:31] LABS: ALT (SGPT) 20 U/L (0-35); AST (SGOT) 21 U/L (14-36); Albumin 4.3 g/dl (3.5-5.0); Alkaline Phosphatase 92 U/L (38-126); Blood Urea Nitrogen 9 mg/dl (7-17); Calcium 9.3 mg/dl (8.4-10.2); Carbon Dioxide 28 mmol/L (22-30); Chloride 106 mmol/L (98-107); Estimated Creatinine Clearance 69 ml/min; Glucose 96 mg/dl (70-99); Potassium 4.1 mmol/L (3.5-5.1); Sodium 140 mmol/L (135-145); Total Protein 7.3 g/dl (6.3-8.2); eGFR > 60.00
[2025-06-08] VITALS (11 sets, daily range): BP systolic 118–180; BP diastolic 67–81
[2025-06-08] MEDS: LOW STRENGTH ASPIRIN 81 MG PO (07:13)
[2025-06-08] MEDS: NSS 247 ML IV (07:14)
[2025-06-08 08:33] LABS: ACT-LR - POC 331 Seconds (116-155)
[2025-06-08] MEDS: NSS 1000 IV (09:11)
[2025-06-08] MEDS: TYLENOL 650 MG PO (09:17)
--- NOTE | 2025-06-08 10:18 | ITS.CL.PN ---
[employer] - Procedure Note
Procedure
Procedure Note:
CARDIAC CATHETERIZATION REPORT
Date of Procedure: 06/08/2025
Referring: Dr. Kathryn Mcdermott MD
Indication: anginal chest pain, positive cardiac stress test, concern for obstructive coronary artery disease on CT angiogram
PROCEDURE(S)
1. left heart catheterization
2. coronary angiography
ACCESS: 6F right radial artery (closure: radial band)
CATHETERS
1. 6F JR4
2. 6F JL3.5
MODERATE SEDATION: 25 minutes of moderate sedation was utilized. An independent medical screener was present to assist with and help manage the patient's level of consciousness and physiologic status.
HEMODYNAMIC DATA
LV 163/3 (EDP 8) mmHg
AO 164/71 (mean 110) mmHg
CORONARY ANGIOGRAPHY
Dominance: Right
LM: Large, normal.
LAD: Large vessel giving rise to a moderate caliber D1, small D2, and moderate caliber D3. There is mild nonobstructive disease.
LCx: Moderate caliber vessel giving rise to a small OM1 and moderate caliber OM2. There is a focal 60% stenosis in the mid body of the OM2.
RCA: Large vessel giving rise to a moderate caliber RPDA and moderate caliber RPL branch. There is mild nonobstructive disease.
iFR of LM to
An Omni wire was flushed and zeroed outside the body and then advanced to the left main. The wire introducer was removed and the catheter flushed with saline, after which pressure of the wire and guide were normalized. The wire was advanced to the
distal OM2 and iFR recorded at 0.96 (negative). On return to the left main, iFR appropriately normalized to ~1.0, confirming lack of wire drift.
RADIATION: dose 306 mGy; DAP 18 Gy*cm2; fluoroscopy time 4.3 min
CONCLUSIONS
1. Nonobstructive coronary artery disease and right dominant system
2. Normal LV filling pressure and no aortic stenosis
RECOMMENDATIONS
1. Primary prevention of coronary artery disease.
2. Patient should quit smoking if she wishes to have a normal lifespan.
Copy to: Dr. Kathryn Mcdermott MD (payroll coordinator); Dr. Eugene Gilmore DO (PCP)
Signed: Brice Duran MD, PhD
--- NOTE | 2025-06-08 12:09 | PTCARENOTE ---
Addendum entered by Sally Martins RN 06/08/25 12:16:
We discussed the risk of bleeding from early band removal and rushing through the process many many times , all the way through her stay until the eventual early discharge d/t ongoing pressuring and concern for her safety at 1150.
Original Note:
Pt argumentative with everyone from the time of scheduling, through the prep, refusing needed interventions preop, arguing with the VAT team from the second she showed up and until she left (visibly shaken), then insisting to go home from the minute
she arrived post cath She was informed by myself and the BAG MENDER the length of stay and the necessary cautions that must be taken to prevent bleeding. She was going to leave AMA with the radial band in place and IV line in. I arrived at the bedside when
she was getting dressed with radial band in and IV running. We discssesed it many more times and she's
== END 2025-06-08 11:55 | disposition home or self-care (01) ==
LOC: CATH 06:17
PROVIDERS: ATTENDING PHYSICIAN Student in an Organized Health Care Education/Training Program; FAMILY PHYSICIAN Family Medicine; OTHER PHYSICIAN Internal Medicine Cardiovascular Disease
DX: I25.119 Atherosclerotic heart disease of native coronary artery with unspecified angina pectoris (principal); I10 Essential (primary) hypertension; Z95.5 Presence of coronary angioplasty implant and graft; K50.90 Crohn's disease, unspecified, without complications; Z87.442 Personal history of urinary calculi; K76.0 Fatty (change of) liver, not elsewhere classified; R42 Dizziness and giddiness; Z85.038 Personal history of other malignant neoplasm of large intestine; Z90.49 Acquired absence of other specified parts of digestive tract; Z87.440 Personal history of urinary (tract) infections; G89.4 Chronic pain syndrome; F11.20 Opioid dependence, uncomplicated; M85.80 Other specified disorders of bone density and structure, unspecified site; R82.991 Hypocitraturia; E53.8 Deficiency of other specified B group vitamins; F17.210 Nicotine dependence, cigarettes, uncomplicated; E04.2 Nontoxic multinodular goiter
CPT/HCPCS: 99152; 99153; 93799; 36415; 80053; 85025; 93005; 93458; C1769; Q9967